=== PATIENT | female | born 1995 | race Caucasian/White ===

== ENCOUNTER 2017-01-27 12:59 | Emergency (ER) | payer OTHER ==
[2017-01-27] MEDS ORDERED: NS 0.9% 1000 ML* 1,000 ML IV ONE (13:24)
[2017-01-27 13:50] LABS: Hematocrit 40 % (35-47); Hemoglobin 13.4 g/dl (12.0-16.0); Mean Corpuscular HGB Conc 34 g/dl (31-36); Mean Corpuscular Hemoglobin 26 pg (27-31); Mean Corpuscular Volume 77 fL (80-97); Mean Platelet Volume 10 um3 (7.4-10.4); Red Blood Count 5.12 10^6/ul (4.0-5.4); Red Cell Distribution Width 14 % (10.5-15); White Blood Count 5.4 10^3/ul (3.5-10.8)
[2017-01-27 14:05] LABS: Albumin 3.9 g/dL (3.2-5.2); Anion Gap 8 mmol/L (2-11); BUN/Creatinine Ratio 11.1 (8-20); Blood Urea Nitrogen 10 mg/dL (6-24); CO2 Carbon Dioxide 21 mmol/L (22-32); Calcium 9.2 mg/dL (8.6-10.3); Chloride 105 mmol/L (101-111); EGFR African American 101.6 (>60); Globulin 3.1 g/dL (2-4); Glucose 93 mg/dL (70-100); Potassium 3.6 mmol/L (3.5-5.0); Sodium 134 mmol/L (133-145)
[2017-01-27 14:06] LABS: ALT 20 U/L (7-52); AST 23 U/L (13-39); Alkaline Phosphatase 36 U/L (34-104)
[2017-01-27] MEDS ORDERED: Iohexol 350* (CONTRAST) 500 ML MDV IV ONE (14:18)
[2017-01-27 14:23] VITALS: BP 128/90
[2017-01-27 14:46] LABS: TSH (Thyroid Stimulating Horm) 1.29 mcIU/mL (0.34-5.60)
--- NOTE | 2017-01-27 14:55 | RAD ---
INDICATION: Chest pain. Assess for pulmonary embolism. COMPARISON: None. TECHNIQUE: Multidetector CT images were obtained from the lung apices to the upper abdomen with 60 mL Omnipaque 350 IV contrast. Pulmonary angiogram protocol. Multiplanar reformation including with maximum intensity projection. REPORT: Clear lungs and pleural spaces. Negative for pneumothorax. 0.8 cm short axis normal size range RIGHT hilar lymph node. Negative for thoracic lymphadenopathy. Minimal residual thymic tissue at the anterior mediastinum. Negative for cardiomegaly or pericardial effusion. No filling defects are identified from the main to the subsegmental pulmonary arteries to indicate presence of a pulmonary embolism. Unremarkable Limited images through the upper abdomen. No thoracic fracture or suspicious focal osseous lesion evident. IMPRESSION: No evidence for pulmonary embolism or other pathologic thoracic process. Negative exam.
[2017-01-27] MEDS ORDERED: Ibuprofen TAB* 400 MG PO ONE (15:04)
--- NOTE | 2017-01-27 15:36 | ED ---
Wilmer Crespo Angela, scribed for Curtis Abbott on 01/27/17 at 1329 . HPI Chest Pain - HPI Summary HPI Summary: This pt is a 21 y/o female BIBA from [facility] presenting to [facility] c/o sudden onset of chest pain and pressure since today at 0900. Pt reports she was walking to a meeting when she felt sharp severe chest pain and pressure. She reports associate symptoms of SOB, light-headedness, dizziness, and abdominal cramping. Pt states that she feels SOB even when she is lying down. Deep breaths and movement do not exacerbate her chest pain. She denies weakness or numbness in LE or UE, fever, headache, any other complaints. Pt denies smoking, alcohol, or drug use. She is currently on control pills for approximately 3 years now. Pt denies any PMHx. Pt had a CT scan of her head 4 years ago due to a concussion. - History of Current Complaint Chief Complaint: EDChestPainROMI Time Seen by Provider: 01/27/17 13:11 Hx Obtained From: Patient Onset/Duration: Started Hours Ago Pain Intensity: 6 Pain Scale Used: 0-10 Numeric Chest Pain Radiates: No Aggravating Factor(s): Nothing Alleviating Factor(s): Nothing Associated Signs and Symptoms: Positive: Chest Pain, Dizziness, Shortness of Breath, Lightheadedness. Negative: Headaches, Numbness, Tingling, Weakness, Fever, Chills - Allergy/Home Medications Allergies/Adverse Reactions: Allergies Allergy/AdvReac Type Severity Reaction Status Date / Time No Known Allergies Allergy Verified 01/27/17 13:59 PMH/Surg Hx/FS Hx/Imm Hx Endocrine/Hematology History: Denies: Hx Diabetes Cardiovascular History: Denies: Hx Hypertension Respiratory History: Denies: Hx Asthma Infectious Disease History: No Infectious Disease History: Denies: Traveled Outside the [place] in Last 30 Days - Family History Known Family History: Positive: None - Social History Alcohol Use: Occasionally Substance Use Type: Reports: None Smoking Status (MU): Never Smoked Tobacco Review of Systems Negative: Fever, Chills Eyes: Negative ENT: Negative Positive: Chest Pain Positive: Shortness Of Breath Positive: Abdominal Pain - abdominal cramping Genitourinary: Negative Musculoskeletal: Negative Skin: Negative Neurological: Other - light-headedness, dizziness Negative: Headache, Weakness, Numbness All Other Systems Reviewed And Are Negative: Yes Physical Exam Triage Information Reviewed: Yes Vital Signs On Initial Exam: Initial Vitals BP 125/82 01/27/17 13:06 Vital Signs Reviewed: Yes Appearance: Positive: Well-Appearing, No Pain Distress Skin: Positive: Warm, Skin Color Reflects Adequate Perfusion, Dry Head/Face: Positive: Normal Head/Face Inspection Eyes: Positive: EOMI, ALBINA ENT: Positive: Normal ENT inspection Neck: Positive: Supple, Nontender Respiratory/Lung Sounds: Positive: Clear to Auscultation, Breath Sounds Present Cardiovascular: Positive: RRR, Pulses are Symmetrical in both Upper and Lower Extremities Abdomen Description: Positive: Nontender, Soft Bowel Sounds: Positive: Present Musculoskeletal: Positive: Normal, Strength/ROM Intact Neurological: Positive: Normal, Sensory/Motor Intact, Alert, Oriented to Person Place, Time - B[place] Coma Scale Coma Scale Total: 15 Diagnostics - Vital Signs Vital Signs Temp Pulse Resp BP Pulse Ox 01/27/17 13:08 103 100 01/27/17 13:07 99.4 F 106 14 125/82 100 01/27/17 13:06 125/82 - Laboratory Result Diagrams: 01/27/17 13:40 01/27/17 13:40 Lab Statement: Any lab studies that have been ordered have been reviewed, and results considered in the medical decision making process. - CT CTA Chest CT Interpretation: No Acute Changes - IMPRESSION: No evidence for pulmonary embolism or other pathologic thoraric process. Negative exam. ED physician has reviewed this radiology report and agrees. CT Interpretation Completed By: Radiologist - EKG 1331 Cardiac Rate: NL EKG Rhythm: Sinus Rhythm EKG Interpretation: No acute changes Chest Pain Course/Dx - Course Assessment/Plan: This pt is a 21 y/o female BIBA from [facility] presenting to [facility] c/o sudden onset of chest pain and pressure since today at 0900. Pt reports she was walking to a meeting when she felt sharp severe chest pain and pressure. Bloodwork, CTA chest, and EKG were obtained. In the ED course, pt was given IV fluids. CT was negative for pulmonary embolism. Pt will be discharged and is advised to follow up with her PCP in 3 days. - Diagnoses Provider Diagnoses: Atypical chest pain Discharge - Discharge Plan Condition: Stable Disposition: HOME Prescriptions: Ibuprofen TAB* [Motrin TAB* 600 MG] 600 mg PO Q8H PRN #20 tab MDD 3 PRN Reason: Pain Patient Education Materials: Chest Pain (ED) Referrals: [facility] [Primary Care Provider] - Additional Instructions: Please follow up with your primary care physician in 3 days. The documentation as recorded by the Wilmer ramos Angela accurately reflects the service I personally performed and the decisions made by , Curtis Abbott.
== END 2017-01-27 15:49 | disposition home or self-care (01) ==
LOC: ED 12:59
DX: R07.89 Other chest pain (principal); R42 Dizziness and giddiness; R06.02 Shortness of breath
CPT/HCPCS: 36415; 71275; 80053; 83880; 84443; 84484; 84702; 85025; 85379; 85610; 85730; 93005; 99282; A9270-GY; Q9967